=== PATIENT | male | born 1955 | race Caucasian/White ===

== ENCOUNTER 2017-06-12 20:19 | Inpatient (IN) | payer OTHER, BC ==
[~2017-06-12] VITALS: Ht 185.4 cm; Wt 133.5 kg
[2017-06-12 22:34] LABS: BASOPHIL (%) 0.9 % (0-1); BASOPHIL COUNT 0.1 K/uL (0-0.1); EOSINOPHIL (%) 1.2 % (0-5); EOSINOPHIL COUNT 0.1 K/uL (0-0.3); HEMOGLOBIN 12.7 G/DL (12.5-16.6); IMMATURE GRANULOCYTE (%) 0.4 % (0.0-0.7); LYMPHOCYTE (%) 12.6 % (15-42); LYMPHOCYTE COUNT 0.7 K/uL (1.0-2.8); MCH 32.7 PG (29.0-34.0); MCHC 32.6 G/DL (30.0-36.0); MCV 100.5 FL (86-99); MONOCYTE (%) 7.5 % (3-12); MONOCYTE COUNT 0.4 K/uL (0-0.8); NEUTROPHIL (%) 77.4 % (45-76); NEUTROPHIL COUNT 4.4 K/uL (1.8-6.4); PLATELET COUNT 106 K/uL (156-360); RBC DIS.WIDTH-CV 15.5 % (11.8-14.6); RBC DIS.WIDTH-SD 57.4 % (39-53); RED BLOOD COUNT 3.88 M/uL (4.00-5.50); WHITE BLOOD COUNT 5.7 K/uL (4.1-10.2)
[2017-06-12 22:46] LABS: CHLORIDE 98 mEq/L (99-109); POTASSIUM 3.7 mEq/L (3.7-5.4); SODIUM 139 mEq/L (136-147)
[2017-06-12 22:48] LABS: GLUCOSE 112 mg/dL (70-99)
[2017-06-12 22:52] LABS: CREATININE 1.3 mg/dL (0.6-1.3); UREA NITROGEN (BUN) 20 mg/dL (9-23)
[2017-06-12 22:53] LABS: GFR ESTIMATE (CALCULATED) > 59 mL/min/ (58.99-99999)
[2017-06-12 23:17] LABS: APPEARANCE CLEAR ((CLEAR)); BILIRUBIN NEGATIVE; BLOOD NEGATIVE; COLOR YELLOW ((YELLOW)); GLUCOSE (STRIP) NEGATIVE; KETONES NEGATIVE; LEUKOCYTES NEGATIVE; NITRITE NEGATIVE; PROTEIN (STRIP) 100; SPECIFIC GRAVITY 1.024 (1.000-1.030)
[2017-06-12 23:26] LABS: BACTERIA RARE /HPF; EPITHELIAL CELLS RARE /HPF; MUCUS TRACE /LPF; UCUL ADDED? YES
[2017-06-12 23:39] LABS: ALBUMIN 4.1 g/dL (3.2-4.8)
[2017-06-12 23:42] LABS: TOTAL PROTEIN 7.3 g/dL (6.4-8.3)
[2017-06-12 23:44] LABS: TOTAL BILIRUBIN 1.7 mg/dL (0.0-1.0)
[2017-06-12 23:45] LABS: ALKALINE PHOSPHATASE 143 IU/L (3-129)
[2017-06-12 23:47] LABS: AST (GOT) 18 IU/L (2-34); DIRECT BILIRUBIN 0.9 mg/dL (0.0-0.3)
[2017-06-12 23:48] LABS: ALT (GPT) 8 IU/L (3-49)
[2017-06-13] VITALS (7 sets, daily range): BP systolic 78–146; BP diastolic 50–82
[2017-06-13 01:40] LABS: INTER. NORMALIZED RATIO 3.8
[2017-06-13 01:45] LABS: LIPASE 5 U/L (1.0-51.0)
[2017-06-13 02:21] LABS: DIGOXIN < 0.3 ng/mL (0.8-2.0)
[2017-06-13 06:14] LABS: INTER. NORMALIZED RATIO 3.9
[2017-06-13] MEDS ORDERED: RAMIPRIL1.25 MG PO (13:43)
[2017-06-13] MEDS ORDERED: MORPHINE SULFAT15 MG PO (13:52)
[2017-06-13] MEDS ORDERED: MORPHINE SULFAT30 M2 PO (13:53)
[2017-06-13] MEDS ORDERED: WARFARIN SODIUM5 MG PO (13:56)
[2017-06-13] MEDS ORDERED: FUROSEMIDE40 MG PO (13:56)
[2017-06-13] MEDS ORDERED: LANOXIN62.5 MCG PO (13:57)
[2017-06-13] MEDS ORDERED: POTASSIUM CHLO20 ME1 PO (13:58)
[2017-06-13] MEDS ORDERED: ASPERCREME1 EACH TP (13:58)
[2017-06-13] MEDS ORDERED: MYCOSTATIN1 APPLICAT TP (14:01)
[2017-06-13] MEDS ORDERED: ASPIRIN81 M2 PO (14:02)
[2017-06-13] MEDS ORDERED: COUMADIN5 MG PO (14:13)
[2017-06-13 22:09] LABS: ALBUMIN 3.6 g/dL (3.2-4.8); CHLORIDE 102 mEq/L (99-109); POTASSIUM 5.1 mEq/L (3.7-5.4); SODIUM 139 mEq/L (136-147)
[2017-06-13 22:10] LABS: MAGNESIUM 2.5 mg/dL (1.3-2.7)
[2017-06-13 22:12] LABS: GLUCOSE 97 mg/dL (70-99); TOTAL PROTEIN 6.6 g/dL (6.4-8.3)
[2017-06-13 22:13] LABS: TOTAL BILIRUBIN 1.5 mg/dL (0.0-1.0)
[2017-06-13 22:15] LABS: ALKALINE PHOSPHATASE 118 IU/L (3-129); CREATININE 1.4 mg/dL (0.6-1.3); GFR ESTIMATE (CALCULATED) 55 mL/min/ (58.99-99999); PHOSPHORUS 3.4 mg/dL (2.5-4.9)
[2017-06-13 22:16] LABS: UREA NITROGEN (BUN) 21 mg/dL (9-23)
[2017-06-13 22:18] LABS: ALT (GPT) 9 IU/L (3-49)
[2017-06-13 22:19] LABS: AST (GOT) 35 IU/L (2-34)
[2017-06-13 22:21] LABS: TROP-I INTERPRETATION NEGATIVE; TROPONIN-I 0.01 ng/mL (0.0-0.30)
[2017-06-14 03:53] VITALS: BP 84/53
[2017-06-14 06:19] LABS: INTER. NORMALIZED RATIO 4.7
[2017-06-14 07:48] VITALS: BP 92/57
[2017-06-14 07:58] LABS: HEMATOCRIT 35.2 % (38.0-50.0); HEMOGLOBIN 10.9 G/DL (12.5-16.6); MCH 32.1 PG (29.0-34.0); MCV 103.5 FL (86-99); PLATELET COUNT 89 K/uL (156-360); RBC DIS.WIDTH-CV 15.8 % (11.8-14.6); RBC DIS.WIDTH-SD 59.5 % (39-53)
[2017-06-14 08:10] LABS: CHLORIDE 103 MEQ/L (99-109); SODIUM 141 MEQ/L (136-147)
[2017-06-14 08:16] LABS: CREATININE 1.2 MG/DL (0.6-1.3); GFR ESTIMATE (CALCULATED) > 59 mL/min/ (58.99-99999); GLUCOSE 89 mg/dL (70-99); UREA NITROGEN (BUN) 21 mg/dL (9-23)
[2017-06-14 08:40] LABS: POTASSIUM 3.9 MEQ/L (3.7-5.4)
[2017-06-14 09:53] LABS: POTASSIUM 3.6 MEQ/L (3.7-5.4)
[2017-06-14 11:36] VITALS: BP 131/58
[2017-06-14 15:41] VITALS: BP 104/59
[2017-06-14 19:24] VITALS: BP 100/56
[2017-06-14 23:49] VITALS: BP 107/54
[2017-06-15 03:49] VITALS: BP 111/58
[2017-06-15 06:06] LABS: HEMATOCRIT 37.4 % (38.0-50.0); HEMOGLOBIN 11.8 G/DL (12.5-16.6); MCH 32.6 PG (29.0-34.0); MCHC 31.6 G/DL (30.0-36.0); MCV 103.3 FL (86-99); NRBC (%) 1.4 /100 WBC (0-0); PLATELET COUNT 102 K/uL (156-360); RBC DIS.WIDTH-CV 15.8 % (11.8-14.6); RBC DIS.WIDTH-SD 60.3 % (39-53); RED BLOOD COUNT 3.62 M/uL (4.00-5.50); WHITE BLOOD COUNT 4.4 K/uL (4.1-10.2)
[2017-06-15 06:37] LABS: ALBUMIN 3.6 G/DL (3.2-4.8); ALKALINE PHOSPHATASE 97 IU/L (3-129); ALT (GPT) 6 IU/L (3-49); AST (GOT) 15 IU/L (2-34); CHLORIDE 99 MEQ/L (99-109); CREATININE 1.3 MG/DL (0.6-1.3); GFR ESTIMATE (CALCULATED) > 59 mL/min/ (58.99-99999); GLUCOSE 92 mg/dL (70-99); POTASSIUM 4.1 MEQ/L (3.7-5.4); SODIUM 140 MEQ/L (136-147); UREA NITROGEN (BUN) 20 mg/dL (9-23)
[2017-06-15 06:43] LABS: INTER. NORMALIZED RATIO 5.6
[2017-06-15 07:21] VITALS: BP 106/60
[2017-06-15 09:08] LABS: FOLIC ACID (FOLATE) 7.8 NG/ML (5.0-22.0)
[2017-06-15 11:05] VITALS: BP 93/55
[2017-06-15 15:26] VITALS: BP 101/58
[2017-06-16 00:29] VITALS: BP 90/51
[2017-06-16 04:02] VITALS: BP 140/65
[2017-06-16 06:38] LABS: EOSINOPHIL COUNT 0.1 K/uL (0-0.3); HEMATOCRIT 37.9 % (38.0-50.0); IMMATURE GRANULOCYTE (%) 0.5 % (0.0-0.7); LYMPHOCYTE (%) 18.3 % (15-42); LYMPHOCYTE COUNT 0.7 K/uL (1.0-2.8); MCH 32.5 PG (29.0-34.0); MCHC 31.7 G/DL (30.0-36.0); MCV 102.7 FL (86-99); MONOCYTE COUNT 0.4 K/uL (0-0.8); NEUTROPHIL (%) 67.2 % (45-76); NEUTROPHIL COUNT 2.7 K/uL (1.8-6.4); PLATELET COUNT 102 K/uL (156-360); RBC DIS.WIDTH-CV 15.8 % (11.8-14.6); RED BLOOD COUNT 3.69 M/uL (4.00-5.50)
[2017-06-16 06:41] LABS: INTER. NORMALIZED RATIO 4.4
[2017-06-16 07:01] LABS: CHLORIDE 98 MEQ/L (99-109); CREATININE 1.3 MG/DL (0.6-1.3); GFR ESTIMATE (CALCULATED) > 59 mL/min/ (58.99-99999); GLUCOSE 106 mg/dL (70-99); POTASSIUM 4.1 MEQ/L (3.7-5.4); SODIUM 137 MEQ/L (136-147); UREA NITROGEN (BUN) 21 mg/dL (9-23)
[2017-06-16 07:51] VITALS: BP 108/55
[2017-06-16 12:00] VITALS: BP 93/51
[2017-06-16 16:01] VITALS: BP 90/53
[2017-06-16 20:03] VITALS: BP 111/59
[2017-06-17] VITALS: BP 104/64
[2017-06-17 04:03] VITALS: BP 98/56
[2017-06-17 07:00] LABS: INTER. NORMALIZED RATIO 3.8
[2017-06-17 07:22] LABS: CHLORIDE 99 MEQ/L (99-109); CREATININE 1.4 MG/DL (0.6-1.3); GFR ESTIMATE (CALCULATED) 55 mL/min/ (58.99-99999); GLUCOSE 108 mg/dL (70-99); SODIUM 139 MEQ/L (136-147); UREA NITROGEN (BUN) 21 mg/dL (9-23)
[2017-06-17 08:00] VITALS: BP 101/56
[2017-06-17 12:00] VITALS: BP 93/59
[2017-06-17 16:00] VITALS: BP 103/56
[2017-06-17 19:59] VITALS: BP 106/67
[2017-06-18] VITALS (7 sets, daily range): BP systolic 94–109; BP diastolic 51–58
[2017-06-18 06:45] LABS: HEMATOCRIT 37.3 % (38.0-50.0); HEMOGLOBIN 11.9 G/DL (12.5-16.6); MCH 32.4 PG (29.0-34.0); MCHC 31.9 G/DL (30.0-36.0); MCV 101.6 FL (86-99); PLATELET COUNT 92 K/uL (156-360); RBC DIS.WIDTH-CV 15.7 % (11.8-14.6); RBC DIS.WIDTH-SD 58.4 % (39-53); RED BLOOD COUNT 3.67 M/uL (4.00-5.50); WHITE BLOOD COUNT 3.8 K/uL (4.1-10.2)
[2017-06-18 06:51] LABS: INTER. NORMALIZED RATIO 2.9
[2017-06-18 07:34] LABS: CHLORIDE 97 MEQ/L (99-109); CREATININE 1.3 MG/DL (0.6-1.3); GFR ESTIMATE (CALCULATED) > 59 mL/min/ (58.99-99999); GLUCOSE 95 mg/dL (70-99); SODIUM 138 MEQ/L (136-147); UREA NITROGEN (BUN) 24 mg/dL (9-23)
[2017-06-19 03:22] VITALS: BP 98/55
[2017-06-19 06:42] LABS: INTER. NORMALIZED RATIO 2.5
[2017-06-19 06:51] LABS: CHLORIDE 96 MEQ/L (99-109); CREATININE 1.4 MG/DL (0.6-1.3); GFR ESTIMATE (CALCULATED) 55 mL/min/ (58.99-99999); GLUCOSE 133 mg/dL (70-99); POTASSIUM 3.9 MEQ/L (3.7-5.4); SODIUM 137 MEQ/L (136-147); UREA NITROGEN (BUN) 28 mg/dL (9-23)
[2017-06-19 07:20] VITALS: BP 98/55
[2017-06-19 11:03] VITALS: BP 92/54
[2017-06-19 15:04] VITALS: BP 95/53
[2017-06-19 19:10] VITALS: BP 105/55
[2017-06-20] VITALS (8 sets, daily range): BP systolic 90–122; BP diastolic 52–80
[2017-06-20 06:24] LABS: INTER. NORMALIZED RATIO 2.1
[2017-06-20 06:38] LABS: CHLORIDE 97 MEQ/L (99-109); CREATININE 1.3 MG/DL (0.6-1.3); GFR ESTIMATE (CALCULATED) > 59 mL/min/ (58.99-99999); GLUCOSE 107 mg/dL (70-99); SODIUM 137 MEQ/L (136-147); UREA NITROGEN (BUN) 32 mg/dL (9-23)
[2017-06-21] VITALS (7 sets, daily range): BP systolic 98–124; BP diastolic 55–74
[2017-06-21 06:32] LABS: INTER. NORMALIZED RATIO 1.9
[2017-06-21 07:00] LABS: CHLORIDE 97 MEQ/L (99-109); CREATININE 1.3 MG/DL (0.6-1.3); GFR ESTIMATE (CALCULATED) > 59 mL/min/ (58.99-99999); GLUCOSE 114 mg/dL (70-99); SODIUM 137 MEQ/L (136-147); UREA NITROGEN (BUN) 36 mg/dL (9-23)
[2017-06-22 04:09] VITALS: BP 97/56
[2017-06-22 06:49] LABS: CHLORIDE 98 MEQ/L (99-109); CREATININE 1.4 MG/DL (0.6-1.3); GFR ESTIMATE (CALCULATED) 55 mL/min/ (58.99-99999); GLUCOSE 115 mg/dL (70-99); HEMATOCRIT 36.6 % (38.0-50.0); HEMOGLOBIN 12.1 G/DL (12.5-16.6); MCH 32.8 PG (29.0-34.0); MCHC 33.1 G/DL (30.0-36.0); MCV 99.2 FL (86-99); PLATELET COUNT 87 K/uL (156-360); RBC DIS.WIDTH-CV 15.2 % (11.8-14.6); RBC DIS.WIDTH-SD 55.3 % (39-53); RED BLOOD COUNT 3.69 M/uL (4.00-5.50); SODIUM 138 MEQ/L (136-147); UREA NITROGEN (BUN) 41 mg/dL (9-23); WHITE BLOOD COUNT 4.3 K/uL (4.1-10.2)
[2017-06-22 07:54] VITALS: BP 100/76
[2017-06-22 12:03] VITALS: BP 105/64
[2017-06-22 16:06] VITALS: BP 103/56
[2017-06-22 19:41] VITALS: BP 112/56
[2017-06-23 00:08] VITALS: BP 108/53
[2017-06-23 03:38] VITALS: BP 102/56
[2017-06-23 07:14] LABS: HEMATOCRIT 36.1 % (38.0-50.0); HEMOGLOBIN 11.7 G/DL (12.5-16.6); MCH 31.9 PG (29.0-34.0); MCHC 32.4 G/DL (30.0-36.0); MCV 98.4 FL (86-99); PLATELET COUNT 85 K/uL (156-360); RBC DIS.WIDTH-CV 15.3 % (11.8-14.6); RBC DIS.WIDTH-SD 54.8 % (39-53); RED BLOOD COUNT 3.67 M/uL (4.00-5.50)
[2017-06-23 07:17] LABS: INTER. NORMALIZED RATIO 1.9
[2017-06-23 07:26] VITALS: BP 104/53
[2017-06-23 07:38] LABS: CHLORIDE 99 MEQ/L (99-109); CREATININE 1.3 MG/DL (0.6-1.3); GFR ESTIMATE (CALCULATED) > 59 mL/min/ (58.99-99999); GLUCOSE 117 mg/dL (70-99); POTASSIUM 3.8 MEQ/L (3.7-5.4); SODIUM 139 MEQ/L (136-147); UREA NITROGEN (BUN) 48 mg/dL (9-23)
[2017-06-23 10:59] LABS: DIGOXIN 0.7 ng/mL (0.8-2.0)
[2017-06-23 11:18] VITALS: BP 103/59
[2017-06-23 15:34] VITALS: BP 103/51
[2017-06-23 19:53] VITALS: BP 111/62
[2017-06-24] VITALS: BP 104/64
[2017-06-24 04:00] VITALS: BP 108/62
[2017-06-24 06:41] LABS: HEMATOCRIT 36.9 % (38.0-50.0); MCH 31.9 PG (29.0-34.0); MCHC 32.5 G/DL (30.0-36.0); MCV 98.1 FL (86-99); PLATELET COUNT 97 K/uL (156-360); RBC DIS.WIDTH-SD 54.6 % (39-53); RED BLOOD COUNT 3.76 M/uL (4.00-5.50); WHITE BLOOD COUNT 4.4 K/uL (4.1-10.2)
[2017-06-24 06:50] LABS: INTER. NORMALIZED RATIO 1.9
[2017-06-24 07:01] LABS: CHLORIDE 97 MEQ/L (99-109); POTASSIUM 3.7 MEQ/L (3.7-5.4); SODIUM 140 MEQ/L (136-147)
[2017-06-24 07:36] VITALS: BP 97/55
[2017-06-24 08:01] LABS: ALBUMIN 3.9 G/DL (3.2-4.8); CREATININE 1.2 MG/DL (0.6-1.3); GFR ESTIMATE (CALCULATED) > 59 mL/min/ (58.99-99999); GLUCOSE 129 mg/dL (70-99); UREA NITROGEN (BUN) 48 mg/dL (9-23)
[2017-06-24] MEDS ORDERED: RAMIPRIL2.5 MG PO (13:15)
[2017-06-24] MEDS ORDERED: CARVEDILOL6.25 MG PO (13:15)
[2017-06-24] MEDS ORDERED: BUMETANIDE1 MG PO (13:16)
[2017-06-24] MEDS ORDERED: SPIRONOLACTONE25 MG PO (13:16)
[2017-06-24] MEDS ORDERED: LIPITOR20 MG PO (13:18)
[2017-06-24] MEDS ORDERED: SANTYL30 GM TP (13:19)
[2017-06-24] MEDS ORDERED: ASPERCREME1 EACH TP (14:24)
[2017-06-24] MEDS ORDERED: ANECREAM30 GM TP (14:34)
== END 2017-06-24 15:41 | disposition home health service (06) | DRG 291 ==
LOC: EME 20:19 → EXP 20:19 → EDOF 06-13 02:55 → 5SOUTH 06-13 02:55 → ENRESERV 06-13 02:57 → 5SOUTH 06-13 04:47
PROVIDERS: Family Medicine; Hospitalist; Internal Medicine; Internal Medicine Cardiovascular Disease; Physician Assistant; Physician Assistant Medical
DX: I13.0 Hypertensive heart and chronic kidney disease with heart failure and stage 1 through stage 4 chronic kidney disease, or unspecified chronic kidney disease (principal); I50.23 Acute on chronic systolic (congestive) heart failure; N18.9 Chronic kidney disease, unspecified; N17.9 Acute kidney failure, unspecified; J96.01 Acute respiratory failure with hypoxia; L03.116 Cellulitis of left lower limb; L89.892 Pressure ulcer of other site, stage 2; L97.819 Non-pressure chronic ulcer of other part of right lower leg with unspecified severity; R18.8 Other ascites; D69.6 Thrombocytopenia, unspecified; E11.22 Type 2 diabetes mellitus with diabetic chronic kidney disease; E11.51 Type 2 diabetes mellitus with diabetic peripheral angiopathy without gangrene; I08.1 Rheumatic disorders of both mitral and tricuspid valves; I27.20 Pulmonary hypertension, unspecified; E87.6 Hypokalemia; T50.1X5A Adverse effect of loop [high-ceiling] diuretics, initial encounter; N50.89 Other specified disorders of the male genital organs; E78.5 Hyperlipidemia, unspecified; G89.4 Chronic pain syndrome; I25.10 Atherosclerotic heart disease of native coronary artery without angina pectoris; I25.5 Ischemic cardiomyopathy; I48.2 Chronic atrial fibrillation; I50.82 Biventricular heart failure; I87.2 Venous insufficiency (chronic) (peripheral); L30.4 Erythema intertrigo; M10.9 Gout, unspecified; N49.2 Inflammatory disorders of scrotum; T87.89 Other complications of amputation stump; Y83.8 Other surgical procedures as the cause of abnormal reaction of the patient, or of later complication, without mention of misadventure at the time of the procedure; R79.1 Abnormal coagulation profile; E66.01 Morbid (severe) obesity due to excess calories; Z68.42 Body mass index [BMI] 45.0-49.9, adult; Z79.01 Long term (current) use of anticoagulants; Z79.82 Long term (current) use of aspirin; Z86.718 Personal history of other venous thrombosis and embolism; Z87.440 Personal history of urinary (tract) infections; Z87.442 Personal history of urinary calculi; Z87.891 Personal history of nicotine dependence; Z89.511 Acquired absence of right leg below knee; Z95.1 Presence of aortocoronary bypass graft; Z95.5 Presence of coronary angioplasty implant and graft; Z95.810 Presence of automatic (implantable) cardiac defibrillator
CPT/HCPCS: 71045; 71046; 71275; 74177; 76870; 80048; 80053; 80076; 80162; 81003; 82040; 82607; 82746; 82948; 83605; 83690; 83735; 83880; 84100; 84484; 84999; 85025; 85027; 85610; 87040; 87070; 87075; 87077; 87086; 87147; 87186; 87205; 93005; 93306; 94799; 99202; 99281; 99285; J0295; J0690; J0696; J1815; J1940; J7030; J7050

== ENCOUNTER 2017-09-09 11:49 | Emergency (ER) | payer OTHER, BC ==
[~2017-09-09] VITALS: Ht 185.4 cm; Wt 132.0 kg
[~2017-09-09 11:49] MED LIST: ANECREAM30 GM TP; ASPERCREME1 EACH TP; ASPIRIN81 M2 PO; BUMETANIDE1 MG PO; CARVEDILOL6.25 MG PO; COUMADIN5 MG PO; FUROSEMIDE40 MG PO; LANOXIN62.5 MCG PO; LIPITOR20 MG PO; MORPHINE SULFAT15 MG PO; MORPHINE SULFAT30 M2 PO; MYCOSTATIN1 APPLICAT TP; POTASSIUM CHLO20 ME1 PO; RAMIPRIL1.25 MG PO; RAMIPRIL2.5 MG PO; SANTYL30 GM TP; SPIRONOLACTONE25 MG PO; WARFARIN SODIUM5 MG PO
[2017-09-09 13:06] LABS: APPEARANCE CLOUDY ((CLEAR)); BILIRUBIN NEGATIVE; BLOOD LARGE; COLOR RED ((YELLOW)); GLUCOSE (STRIP) NEGATIVE; KETONES NEGATIVE; LEUKOCYTES LARGE; NITRITE NEGATIVE; PROTEIN (STRIP) 100; SPECIFIC GRAVITY 1.016 (1.000-1.030)
[2017-09-09 13:18] LABS: RED BLOOD CELLS TNTC /HPF (0-5); UCUL ADDED? YES
[2017-09-09 15:02] LABS: HEMATOCRIT 34.9 % (38.0-50.0); HEMOGLOBIN 11.5 G/DL (12.5-16.6); MCH 34.1 PG (29.0-34.0); MCV 103.6 FL (86-99); PLATELET COUNT 104 K/uL (156-360); RBC DIS.WIDTH-CV 17.1 % (11.8-14.6); RBC DIS.WIDTH-SD 64.4 % (39-53); RED BLOOD COUNT 3.37 M/uL (4.00-5.50); WHITE BLOOD COUNT 7.3 K/uL (4.1-10.2)
[2017-09-09 15:11] LABS: CHLORIDE 94 mEq/L (99-109); POTASSIUM 3.7 mEq/L (3.7-5.4); SODIUM 138 mEq/L (136-147)
[2017-09-09 15:13] LABS: GLUCOSE 131 mg/dL (70-99)
[2017-09-09 15:16] LABS: CREATININE 1.5 mg/dL (0.6-1.3); GFR ESTIMATE (CALCULATED) 51 mL/min/ (58.99-99999)
[2017-09-09 15:17] LABS: UREA NITROGEN (BUN) 37 mg/dL (9-23)
[2017-09-09] MEDS ORDERED: BACTRIM,SEPT1 TABLET PO (18:22)
[2017-09-09 18:48] VITALS: BP 126/91
== END 2017-09-09 18:50 | disposition home or self-care (01) ==
LOC: EME 11:49
PROVIDERS: Physician Assistant Medical
DX: N39.0 Urinary tract infection, site not specified (principal); B96.20 Unspecified Escherichia coli [E. coli] as the cause of diseases classified elsewhere; R59.0 Localized enlarged lymph nodes; N20.0 Calculus of kidney; R16.2 Hepatomegaly with splenomegaly, not elsewhere classified; R18.8 Other ascites; E11.9 Type 2 diabetes mellitus without complications; I50.9 Heart failure, unspecified; Z79.01 Long term (current) use of anticoagulants; Z79.82 Long term (current) use of aspirin; Z87.440 Personal history of urinary (tract) infections; Z87.891 Personal history of nicotine dependence; Z95.810 Presence of automatic (implantable) cardiac defibrillator; Z87.442 Personal history of urinary calculi; Z85.9 Personal history of malignant neoplasm, unspecified; Z89.511 Acquired absence of right leg below knee; Z90.49 Acquired absence of other specified parts of digestive tract
CPT/HCPCS: 74176; 80048; 81003; 85027; 87077; 87086; 87186; 99281; 99283; J0696

== ENCOUNTER 2017-10-24 15:58 | Inpatient (IN) | payer OTHER, BC ==
[~2017-10-24] VITALS: Ht 185.4 cm; Wt 148.5 kg
[~2017-10-24 15:58] MED LIST changes: +BACTRIM,SEPT1 TABLET PO
[2017-10-24 19:02] LABS: BASOPHIL (%) 0.5 % (0-1); EOSINOPHIL (%) 0.9 % (0-5); EOSINOPHIL COUNT 0.1 K/uL (0-0.3); HEMATOCRIT 36.2 % (38.0-50.0); HEMOGLOBIN 11.9 G/DL (12.5-16.6); IMMATURE GRANULOCYTE (%) 0.7 % (0.0-0.7); LYMPHOCYTE (%) 7.3 % (15-42); LYMPHOCYTE COUNT 0.7 K/uL (1.0-2.8); MCH 34.3 PG (29.0-34.0); MCHC 32.9 G/DL (30.0-36.0); MCV 104.3 FL (86-99); MONOCYTE (%) 6.2 % (3-12); MONOCYTE COUNT 0.6 K/uL (0-0.8); NEUTROPHIL (%) 84.4 % (45-76); NEUTROPHIL COUNT 7.5 K/uL (1.8-6.4); PLATELET COUNT 89 K/uL (156-360); RBC DIS.WIDTH-CV 14.3 % (11.8-14.6); RBC DIS.WIDTH-SD 55.5 % (39-53); RED BLOOD COUNT 3.47 M/uL (4.00-5.50); WHITE BLOOD COUNT 8.9 K/uL (4.1-10.2)
[2017-10-24 19:16] LABS: ALBUMIN 4.2 g/dL (3.2-4.8)
[2017-10-24 19:17] LABS: CHLORIDE 98 mEq/L (99-109); SODIUM 133 mEq/L (136-147)
[2017-10-24 19:19] LABS: GLUCOSE 107 mg/dL (70-99); TOTAL PROTEIN 7.4 g/dL (6.4-8.3)
[2017-10-24 19:21] LABS: TOTAL BILIRUBIN 2.3 mg/dL (0.0-1.0)
[2017-10-24 19:22] LABS: ALKALINE PHOSPHATASE 121 IU/L (3-129)
[2017-10-24 19:23] LABS: CREATININE 1.7 mg/dL (0.6-1.3); GFR ESTIMATE (CALCULATED) 44 mL/min/ (58.99-99999)
[2017-10-24 19:24] LABS: AST (GOT) 14 IU/L (2-34); UREA NITROGEN (BUN) 30 mg/dL (9-23)
[2017-10-24 19:26] LABS: ALT (GPT) 8 IU/L (3-49)
[2017-10-24 19:42] LABS: APPEARANCE CLEAR ((CLEAR)); BILIRUBIN NEGATIVE; BLOOD NEGATIVE; COLOR YELLOW ((YELLOW)); GLUCOSE (STRIP) NEGATIVE; KETONES NEGATIVE; LEUKOCYTES NEGATIVE; NITRITE NEGATIVE; PROTEIN (STRIP) 30; SPECIFIC GRAVITY 1.017 (1.000-1.030); UROBILINOGEN 0.2 MG/DL (0.2-1.0)
[2017-10-24] MEDS ORDERED: LIPITOR20 MG PO (21:16)
[2017-10-24] MEDS ORDERED: ALTACE2.5 MG PO (21:16)
[2017-10-24] MEDS ORDERED: ANECREAM30 GM TP (21:18)
[2017-10-24] MEDS ORDERED: KENALOG,ARISTOC80 G1 TP (21:18)
[2017-10-24] MEDS ORDERED: AMIODARONE HCL200 MG PO (21:18)
[2017-10-24] MEDS ORDERED: METHOCARBAMOL750 MG PO (21:18)
[2017-10-25] VITALS (7 sets, daily range): BP systolic 89–151; BP diastolic 54–83
[2017-10-26 06:43] LABS: INTER. NORMALIZED RATIO 2.6
[2017-10-26 06:54] LABS: CHLORIDE 101 MEQ/L (99-109); CREATININE 1.6 MG/DL (0.6-1.3); GFR ESTIMATE (CALCULATED) 47 mL/min/ (58.99-99999); GLUCOSE 122 mg/dL (70-99); SODIUM 134 MEQ/L (136-147); UREA NITROGEN (BUN) 37 mg/dL (9-23); VANCOMYCIN, TROUGH 11.1 MCG/ML (10-20)
[2017-10-26 07:08] VITALS: BP 84/54
[2017-10-26 07:20] LABS: BASOPHIL (%) 0.9 % (0-1); BASOPHIL COUNT 0.1 K/uL (0-0.1); EOSINOPHIL (%) 4.6 % (0-5); EOSINOPHIL COUNT 0.3 K/uL (0-0.3); HEMATOCRIT 33.9 % (38.0-50.0); IMMATURE GRANULOCYTE (%) 1.2 % (0.0-0.7); LYMPHOCYTE (%) 15.2 % (15-42); LYMPHOCYTE COUNT 0.9 K/uL (1.0-2.8); MCH 34.5 PG (29.0-34.0); MCHC 32.4 G/DL (30.0-36.0); MCV 106.3 FL (86-99); MONOCYTE (%) 13.5 % (3-12); MONOCYTE COUNT 0.8 K/uL (0-0.8); NEUTROPHIL (%) 64.6 % (45-76); NEUTROPHIL COUNT 3.6 K/uL (1.8-6.4); PLATELET COUNT 82 K/uL (156-360); RBC DIS.WIDTH-CV 14.4 % (11.8-14.6); RBC DIS.WIDTH-SD 56.7 % (39-53); RED BLOOD COUNT 3.19 M/uL (4.00-5.50); WHITE BLOOD COUNT 5.6 K/uL (4.1-10.2)
[2017-10-26 08:53] VITALS: BP 110/64
[2017-10-26 17:33] VITALS: BP 101/59
[2017-10-26 23:37] VITALS: BP 96/51
[2017-10-27 06:37] LABS: INTER. NORMALIZED RATIO 2.4
[2017-10-27 07:08] LABS: CHLORIDE 99 MEQ/L (99-109); CREATININE 1.7 MG/DL (0.6-1.3); GFR ESTIMATE (CALCULATED) 44 mL/min/ (58.99-99999); GLUCOSE 105 mg/dL (70-99); POTASSIUM 4.7 MEQ/L (3.7-5.4); SODIUM 133 MEQ/L (136-147); UREA NITROGEN (BUN) 42 mg/dL (9-23)
[2017-10-27 07:32] VITALS: BP 101/65
[2017-10-27 15:36] VITALS: BP 98/59
[2017-10-27 21:14] VITALS: BP 104/61
[2017-10-27 23:55] VITALS: BP 93/54
[2017-10-28 06:41] LABS: INTER. NORMALIZED RATIO 2.4
[2017-10-28 08:26] VITALS: BP 98/62
[2017-10-28 08:40] LABS: ALKALINE PHOSPHATASE 104 IU/L (3-129); ALT (GPT) 9 IU/L (3-49); AST (GOT) 26 IU/L (2-34); CHLORIDE 99 MEQ/L (99-109); CREATININE 1.7 MG/DL (0.6-1.3); GFR ESTIMATE (CALCULATED) 44 mL/min/ (58.99-99999); GLUCOSE 107 mg/dL (70-99); SODIUM 132 MEQ/L (136-147); TOTAL PROTEIN 6.4 G/DL (6.4-8.3); UREA NITROGEN (BUN) 43 mg/dL (9-23)
[2017-10-28 08:41] LABS: POTASSIUM 5.7 MEQ/L (3.7-5.4)
[2017-10-28 16:33] VITALS: BP 110/61
[2017-10-28 16:55] LABS: CHLORIDE 100 MEQ/L (99-109); CREATININE 1.7 MG/DL (0.6-1.3); GFR ESTIMATE (CALCULATED) 44 mL/min/ (58.99-99999); GLUCOSE 93 mg/dL (70-99); POTASSIUM 4.6 MEQ/L (3.7-5.4); SODIUM 136 MEQ/L (136-147); UREA NITROGEN (BUN) 43 mg/dL (9-23)
== END 2017-10-28 18:10 | disposition home or self-care (01) | DRG 603 ==
LOC: EME 15:58 → 3EAST 23:58 → EDOF 23:58 → ENRESERV 10-25 00:13 → 3EAST 10-25 00:59
PROVIDERS: Emergency Medicine; Hospitalist; Internal Medicine; Internal Medicine Nephrology
DX: L03.116 Cellulitis of left lower limb (principal); N17.9 Acute kidney failure, unspecified; T50.2X5A Adverse effect of carbonic-anhydrase inhibitors, benzothiadiazides and other diuretics, initial encounter; I13.0 Hypertensive heart and chronic kidney disease with heart failure and stage 1 through stage 4 chronic kidney disease, or unspecified chronic kidney disease; I50.9 Heart failure, unspecified; E11.22 Type 2 diabetes mellitus with diabetic chronic kidney disease; N18.3 Chronic kidney disease, stage 3 (moderate); I70.202 Unspecified atherosclerosis of native arteries of extremities, left leg; I25.10 Atherosclerotic heart disease of native coronary artery without angina pectoris; I48.2 Chronic atrial fibrillation; E11.51 Type 2 diabetes mellitus with diabetic peripheral angiopathy without gangrene; E87.5 Hyperkalemia; T50.3X5A Adverse effect of electrolytic, caloric and water-balance agents, initial encounter; T50.0X5A Adverse effect of mineralocorticoids and their antagonists, initial encounter; T46.4X5A Adverse effect of angiotensin-converting-enzyme inhibitors, initial encounter; D69.6 Thrombocytopenia, unspecified; E87.1 Hypo-osmolality and hyponatremia; I25.5 Ischemic cardiomyopathy; I27.20 Pulmonary hypertension, unspecified; I87.2 Venous insufficiency (chronic) (peripheral); J44.9 Chronic obstructive pulmonary disease, unspecified; I89.0 Lymphedema, not elsewhere classified; E78.5 Hyperlipidemia, unspecified; E03.9 Hypothyroidism, unspecified; K59.09 Other constipation; G89.4 Chronic pain syndrome; M25.552 Pain in left hip; M10.9 Gout, unspecified; E66.01 Morbid (severe) obesity due to excess calories; Z68.41 Body mass index [BMI] 40.0-44.9, adult; Z91.81 History of falling; Z86.718 Personal history of other venous thrombosis and embolism; Z89.511 Acquired absence of right leg below knee; Z97.13 Presence of artificial right leg (complete) (partial); Z95.5 Presence of coronary angioplasty implant and graft; Z95.810 Presence of automatic (implantable) cardiac defibrillator; Z95.820 Peripheral vascular angioplasty status with implants and grafts; Z87.891 Personal history of nicotine dependence; Z79.01 Long term (current) use of anticoagulants; Z79.82 Long term (current) use of aspirin
CPT/HCPCS: 71045; 80048; 80048 91; 80053; 80202; 81003; 82800; 82948; 83036; 83605; 83930; 85025; 85610; 86140; 87040; 93926; 93971; 99281; 99285; J2270; J2543; J3370; J7030; J7040; J7050